=== PATIENT | male | born 1985 | race Caucasian/White ===

== ENCOUNTER 2017-09-01 21:25 | Emergency (ER) | payer OTHER ==
--- NOTE | 2017-09-01 21:31 | ED Physician Documentation ---
Fall - HISTORIAN Historian: patient - HPI Stated Complaint: chest pain after fall (left) Chief Complaint: Chest Pain Onset: just prior to arrival Where: other (resturant) Context: tripped, slipped r: moderate Associated Symptoms:: no loss of consciousness Location of Pain/Injury: other (left chest he feels he broke a rib ) Injury to Right Extremity: none Injury to Left Extremity: none Further Comments: yes (States he was running in the rain. He slipped and fell. [place] a pop in his left upper rib and pain to movement. No added pain with increased breathing) - ROS CONST: no problems NEURO: denies: dizziness, anxiety MS/SKIN/LYMPH: denies: weakness, numbness, neck pain, back pain, ankle swelling , leg swelling EYES/ENT: none CVS/RESP: chest pain. denies: shortness of breath, palpitations GI/: denies: nausea, vomiting - PAST HX Past History: diabetes Type 1 Immunizations: UTD Allergies/Adverse Reactions: Allergies Allergy/AdvReac Type Severity Reaction Status Date / Time Penicillins Allergy Verified 09/01/17 21:52 Home Medications: Ambulatory Orders Medication Instructions Recorded Insulin Aspart [Novolog] 11/16/15 Insulin Pump Cartridge [T:Flex] 11/16/15 Levothyroxine Sodium [Synthroid] 100 mcg PO 0700 09/01/17 Lisinopril [Zestril] 10 mg PO DAILY 09/01/17 - SOCIAL HX Smoking History: cigarettes - FAMILY HX Family History: none - VITAL SIGNS Vital Signs: Vital Signs Temp Pulse Resp BP Pulse Ox 118/78 11/16/15 15:06 - REVIEWED ASSESSMENTS Nursing Assessment Reviewed: Yes Vitals Reviewed: Yes ED Results Lab/Radiology - Radiology Radiology Impressions: Left rib series History: Left rib pain after fall Findings: The left ribs are unremarkable without displaced fracture or focal rib lesion. Mild left basilar atelectasis is observed. Impression: No evidence of displaced left rib fracture. Electronically signed on Sep 01, 2017 10:02:39 PM PRINT TRAFFIC MANAGER by: Reyes Hernandez Physical Exam - Physical Exam General Appearance: no acute distress, alert Head: non-tender Neck: non-tender Eye: CECIL Resp/CVS: chest non-tender, breath sounds nml, rib tenderness (upper ribs ). No : rib palpable fracture, crepitus Abdomen: soft, normal bowel sounds Neuro: oriented x3, CN's nml as tested, sensation nml, motor nml, mood/affect nml Discharge Clincal Impression: Rib pain on left side Referrals: Primary Doctor,No [Primary Care Provider] - 2 Days Comments: 1. Take cyclobenzaprine 10 mg - take 1 by mouth every 12 hours as needed for pain 2. Ibuprofen 800 mg every 12 hours as needed for pain 3. Ice/heat 4. Deep breaths 5. Return to ER or PCP for any concerns Condition: Stable Disposition: 01 HOME, SELF-CARE Decision to Admit: NO Date of Decison to Admit: 09/01/17 Decision Time: 22:19
[2017-09-01] MEDS: CYCLOBENZAPRINE HCL 5 MG TABLET PO ONE (22:26)
[2017-09-01 22:29] VITALS: BP 128/80
--- NOTE | 2017-09-02 06:29 | Diagnostic Imaging Report ---
FORREST TREJO [facility] [address] [facility].[address] [id number] Report Submission Date: Sep 01, 2017 10:02:39 PM ELEMENTARY ART TEACHER Patient Study Name: LIAM STERLING Date: Sep 01, 2017 9:46:27 PM ELEMENTARY ART TEACHER Modality Type: DX Gender: M Description: CHEST : 81 Institution: [facility] Physician: FORREST TREJO Left rib series History: Left rib pain after fall Findings: The left ribs are unremarkable without displaced fracture or focal rib lesion. Mild left basilar atelectasis is observed. Impression: No evidence of displaced left rib fracture. Electronically signed on Sep 01, 2017 10:02:39 PM ELEMENTARY ART TEACHER by: Reyes GOULD
== END 2017-09-01 22:26 | disposition home or self-care (01) ==
LOC: ED 21:25
DX: R07.81 Pleurodynia (principal)
CPT/HCPCS: 71100; 99282